=== PATIENT | female | born 2000 | race Caucasian/White ===

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

== ENCOUNTER 2021-04-29 07:58 | Emergency (ER) | payer OTHER ==
[2021-04-29] MEDS ORDERED: Acetaminophen 325 MG TAB ONE (08:23)
[2021-04-29 08:32] LABS: Bilirubin Negative (Negative); Blood, Urine Negative (Negative); Clarity Clear (Clear); Glucose, Urine (Dipstick) Negative (Negative); Ketone, Urine Negative (Negative); Leukocyte Negative (Negative); Nitrite Negative (Negative); Protein, Urine (Dipstick) 30 mg/dL (Neg-Trace); Urobilinogen 0.2 mg/dL (Less than 2); pH, Urine 6.5 (5.0-9.0)
[2021-04-29 08:41] LABS: Bacteria/HPF Rare-Few HPF (None Seen); RBC/HPF None Seen HPF (0-3)
== END 2021-04-29 08:48 | disposition home or self-care (01) ==
LOC: BURERS 07:58
DX: O99.891 Other specified diseases and conditions complicating pregnancy (principal); M54.5 Low back pain; M79.10 Myalgia, unspecified site; V43.62XA Car passenger injured in collision with other type car in traffic accident, initial encounter; Y92.410 Unspecified street and highway as the place of occurrence of the external cause; Z3A.15 15 weeks gestation of pregnancy
CPT/HCPCS: 81003; 81015; 99284

== ENCOUNTER 2022-04-30 22:17 | Emergency (ER) | payer OTHER | END 2022-04-30 23:04 | disposition home or self-care (01) | LOC: BURERS 22:17 | DX: S80.01XA Contusion of right knee, initial encounter (principal); S80.02XA Contusion of left knee, initial encounter; W19.XXXA Unspecified fall, initial encounter ==

== ENCOUNTER 2022-08-04 22:35 | Emergency (ER) | payer OTHER ==
[2022-08-04 23:30] LABS: #Basophils 0.1 thou/uL (0.0-0.2); #Eosinphils 0.3 thou/uL (0.0-0.7); #Lymphocytes 2.4 thou/uL (1.20-3.40); #Monocytes 0.8 thou/uL (0.11-0.59); #Neutrophils 3.3 thou/uL (1.40-6.50); %Basophils 1.6 % (0.0-1.0); %Eosinophils 4.9 % (0.0-10.0); %Lymphocytes 34.6 % (21.0-51.0); %Monocytes 11.8 % (0.0-10.0); %Neutrophils 47.1 % (42.0-75.0); Hemoglobin 14.7 g/dL (12.0-16.0); Mean Corpuscular Hemoglobin 27.1 pg (27.0-31.0); Mean Corpuscular Volume 79.7 fl (78.0-98.0); Mean Platelet Volume 10.8 fL (7.4-10.4); Platelet Count 223 10x3/uL (130-400); Red Blood Cell (RBC) Count 5.44 mill/uL (4.20-5.40)
[2022-08-04 23:33] LABS: ALT (SGPT) 21 U/L (8-55); AST (SGOT) 19 U/L (5-34); Albumin 4.3 g/dL (3.5-5.0); Alkaline Phosphatase 78 U/L (40-110); Anion Gap 13 mmol/L (10-20); BUN (Urea Nitrogen) 13 mg/dL (7.0-18.7); Bilirubin, Total 0.2 mg/dL (0.2-1.2); Calc. Creatinine Clearance 0 mL/min (70-130); Calcium 9.1 mg/dL (7.8-10.44); Carbon Dioxide 24 mmol/L (22-29); Chloride 107 mmol/L (98-107); Estimated GFR 121; Globulin 3.1 g/dL (2.4-3.5); Glucose 71 mg/dL (70-105); Potassium 3.4 mmol/L (3.5-5.1); Protein, Total 7.4 g/dL (6.0-8.3); Sodium 141 mmol/L (136-145)
[2022-08-04] MEDS ORDERED: Aspirin Chewable 81 MG TAB ONE (23:45)
[2022-08-05 01:08] LABS: Troponin I Less than 0.010 ng/mL (< 0.028)
== END 2022-08-05 01:37 | disposition home or self-care (01) ==
LOC: BURERS 22:35
DX: R07.89 Other chest pain (principal); R00.2 Palpitations
CPT/HCPCS: 71045; 80053; 83880; 84484; 85025; 85379; 93005

== ENCOUNTER 2024-08-30 18:52 | Emergency (ER) | payer OTHER ==
[2024-08-30 19:25] LABS: Bilirubin Negative (Negative); Blood, Urine Moderate (Negative); Clarity Cloudy (Clear); Glucose, Urine (Dipstick) Negative (Negative); Ketone, Urine Negative (Negative); Leukocyte Large (Negative); Nitrite Negative (Negative); Protein, Urine (Dipstick) 30 mg/dL (Neg-Trace)
[2024-08-30 19:28] LABS: Pregnancy Test - Urine (BHCG) Negative (Negative); Pregu Control Background? CLEAR/WHITE (CLR/WHITE); Pregu Control Bar Appear? YES (CONTROL BAR)
[2024-08-30 19:29] LABS: Bacteria/HPF 2+ HPF (None Seen); CAUTI Indications for Culture Dysuria,urgency,freq; RBC/HPF 0-3 HPF (0-3); WBC/HPF Greater than 50 HPF (0-3)
[2024-08-30 19:30] LABS: Urine Culture Reflex Yes Yes
[2024-08-30] MEDS ORDERED: Nitrofurantoin Monohyd/M-Cryst 100 MG CAP ONE (19:34)
== END 2024-08-30 19:41 | disposition home or self-care (01) ==
LOC: BURERS 18:52
DX: N39.0 Urinary tract infection, site not specified (principal); E03.9 Hypothyroidism, unspecified
CPT/HCPCS: 81001; 81025; 87077; 87086; 87186; 99283

== ENCOUNTER 2025-02-01 16:23 | Emergency (ER) | payer OTHER, SELFPAY | END 2025-02-01 16:56 | disposition home or self-care (01) | LOC: BURERS 16:23 | DX: H60.502 Unspecified acute noninfective otitis externa, left ear (principal) | CPT/HCPCS: 99282 ==